=== PATIENT | male | born 1925 | race Caucasian/White ===

== ENCOUNTER 2016-09-27 01:46 | Observation (INO) | payer OTHER, MEDICARE ==
[~2016-09-27] VITALS: Ht 170.2 cm; Wt 85.0 kg
[2016-09-27] VITALS (7 sets, daily range): BP systolic 123–195; BP diastolic 62–90
[~2016-09-27 01:46] MED LIST: ASPIRIN325 M1 PO; AUGMENTIN 875-1 EACH PO; CRESTOR40 MG PO; LIPITOR40 MG PO; LORTAB 5/500 501 TAB PO; MELOXICAM7.5 MG PO; METOPROLOL SUCC50 M1 PO; TESSALON PERLE100 M1 PO; VALSARTAN160 MG PO; WARFARIN PO; WARFARIN SOD5 MG PO; WARFARIN SODIUM1 MG; WARFARIN SODIUM1 MG PO
[2016-09-27] MEDS ORDERED: ASPIRIN 81MG TA81 MG PO (01:54)
[2016-09-27 02:07] LABS: HEMOGLOBIN 14.8 g/dL (14.1-18.0); LYMPH # 1.7 K/mm3 (0.7-4.5); LYMPH % 30.1 % (10-50)
--- NOTE | 2016-09-27 02:41 | Emergency Room Report ---
History of Present Illness Time Seen by MD Mabry Presenting Problem in Triage Pt arrived:Walked Presenting Problem:PT COMPLAINING OF PAIN IN LEFT SIDE OF CHEST AND DOWN LEFT ARM. PT STATES THAT IT STARTED ABOUT 2 HOURS AGO. HE DESCRIBES PAIN A PRESSURE. PT STATES HE IS NOT HAVING ANY PAIN AT THE PRESENT TIME. 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 N Clinical Suspician of Infection? N Mental Status: 1 - Regular (Normal Baseline) Sepsis Risk:Low Sepsis Risk Have you (or family members/close friends) recently traveled outside the [place]? N If Yes, where/when: Have you had exposure to infectious disease within the past month? N TB? Other? Specify: Source patient, RN notes reviewed, family, old records Exam Limitations no limitations Comment acute onset of 2 hrs of chest pain with rad to lt upper ext in this wm who has known card disease Cardiac Chest Pain Chest pain indicative of cardiac Yes Timing/Duration 1-3 hours, gone now Severity/Quality moderate, pressure Location central Chest Pain Radiation arm(s) Activities at Onset light activity Nitro Today/Relief no nitro taken today Aspirin Treatment Today 81 mg x 4, provided by ED Beta sami treatment today no beta saim taken Cardiac risk factors + cardiovascular disease Prior Workup/Intervention pacemaker, stent(s) Timing/Duration this morning Severity moderate ALLERGIES Coded Allergies: No Known Allergies (09/27/16) Home Medications Reported Medications WARFARIN SOD (Warfarin 5MG) 5 MG PO DAILY Valsartan (Valsartan 160MG) 160 MG PO DAILY Metoprolol Succinate Xl (Metoprolol ER 50MG) 50 MG PO DAILY Atorvastatin Calcium (Atorvastatin) 40 MG PO DAILY ASPIRIN (Aspirin) 81 MG PO DAILY History Medical History General CAD? No Angina: Yes [place]: Yes Hypertension? Yes Hyperlipidemia? Yes CHF? No DVT? No PE? No COPD? No Asthma? No Anemia? No GERD? No Gastric ulcers? No GI Bleed? No Hernia? No Thyroid Problems? No Hypothyroidism? No CVA? Yes Seizures? No Diabetes? No Renal Insuffiency? No End Stage Renal Disease? No UTI? No Stones? No BPH? No GB Disease: No Nephritic Syndrome? No Asplenia? No Hepatitis? No Sickle Cell Disease? No Arthritis? No Migraines? No Cataracts? Yes Glaucoma? No MRSA? No HIV? No TB? No Anxiety? No Depression? No Cancer? No More? Yes Additional hx: BORDERLINE DIABETIC Immunization Hx DT/Tetanus UNKNOWN Flu 2012-13FSN Pneumonia Received In Past Surgical Hx Previous Surgery?Y RT KNEE REPLACEMENT APPY CARDIAC STENTS PACEMAKER Family History Family Hx Diabetes No CAD No Hypertension No Hyperlipidemia No Cancer No TB No Social History Smoking Hx Smoker: Former Smoker Tobacco: No Type N/A Are you/the child exposed to second-hand smoke: No Alcohol Alcohol: No Drugs none Review of Systems All Other Systems Reviewed and Negative Constitutional denies fever Eyes denies drainage ENT denies: ear pain, epistaxis, throat pain. Respiratory denies cough, denies shortness of breath, denies wheezing Cardiovascular see HPI, chest pain, denies palpitations, denies syncope Gastrointestinal denies abdominal pain, denies diarrhea, denies vomiting Genitourinary denies: dysuria, frequency, hesitancy, hematuria. Musculoskeletal denies back pain, denies joint pain, denies joint swelling, denies neck pain Skin denies rash Psychiatric/Neurological denies headache, denies seizure Physical Exam Vital Signs Vital Signs Date Time Temp Pulse Resp B/P Pulse O2 O2 Flow FiO2 Ox Delivery Rate 09/27 0246 64 18 156/85 97 09/27 0148 98.2 67 18 195/90 98 - WBC >12,000 or <4,000 or 10% bands? 2 or more SIRS Criteria Met? B/P:156/85 MAP:125 Creatinine >2.0? UA output<0.5ml/kg/hr for 2 hrs? Platelet count >100,000? Lactate >2.0mmol/1? INR >1.2 or PTT > than 60 sec? Evidence of Organ Dysfunction? Provider documented clinical suspician of infection? N Sepsis Criteria Count: 0 Sepsis Risk: Low Sepsis Risk General Appearance no apparent distress Eye Exam - bilateral eye PERRL, bilateral eye EOMI Ear, Nose, Throat normal ENT inspection Neck non-tender Respiratory Status No: respiratory distress. Lung Sounds bilateral: decreased breath sounds. 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 No Results/Orders Laboratory Tests 09/27/16155: Sodium 139, Potassium 3.9, Chloride 106, Carbon Dioxide 28, BUN 27 H, Creatinine 1.3, Estimated Creat Clear 47 L, Estimated GFR (MDRD) 52, Glucose 180 H, Calcium 8.5, Total Bilirubin 0.4, AST 24, ALT 48, Alkaline Phosphatase 71, Creatine Kinase 64, CK-MB (CK-2) Rel Index 2.2, CK and CKMB Interp 1.4, Troponin I 0.05, B-Natriuretic Peptide 264 H, Total Protein 6.7, Albumin 3.4, Globulin 3.3 H, Albumin/Globulin Ratio 1.0 L, PT 17.2 H, INR 1.61 H, WBC 5.7 , RBC 4.84, Hgb 14.8, Hct 44.9, MCV 92.8, RDW 14.8, Plt Count 158, MPV 9.1, Gran % 55.3, Gran # 3.1, Lymphocytes % 30.1, Monocytes % 10.1 H, Eosinophils % 4.0, Basophils % 0.5, Lymphocytes # 1.7, Monocytes # 0.6, Eosinophils # 0.2, Basophils # 0.0, PUBS MCHC 33.0, MCH 30.6 Current Medication Orders Sig/Miguel Start time Last Medication Dose Route Stop Time Status Admin Aspirin 243 MG ONCE ONE 09/27 199 DC 09/27 PO 09/27 200 015 Sodium Chloride 10 ML PRN PRN 09/27 199 AC IV 09/28 154 Aspirin 0 .STK-MED ONE 09/27 158 DC .ROUTE Orders Procedure Date/time Status Decision to admit 09/27 250 Active PROTHROMBIN TIME 09/27 158 Complete 12 LEAD EKG-LATESHA (INITIAL) 09/27 155 Active ELECTROCARDIOGRAM REQUEST 09/27 155 Active CHEST-PORTABLE 09/27 155 Active IV SALINE LOCK 09/27 155 Active CBC WITH AUTO DIFF 09/27 155 Complete CARDIAC ENZYMES 09/27 155 Complete CHEM 12 PROFILE 09/27 155 Complete BRAIN NATRIURETIC PEPTIDE 09/27 155 Complete 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 ST/Twave chgs XRAY/CT/US XRAY/CT/US XRAY chest XR interpretation by reviewed by me Xray Results abnormal (cm) Departure Departure Time of Disposition 0254 Disposition Still a Patient Clinical Impression Primary Impression: Chest pain Qualifiers: Chest pain type: precordial chest pain Qualified Code: R07.2 - Precordial pain Secondary Impressions: Atrial fibrillation Qualifiers: Atrial fibrillation type: chronic Qualified Code: I48.2 - Chronic atrial fibrillation Condition STABLE Additional Instructions discussed with [facility] and no beds available and ok to admit at [facility] ED Critical Care Critical Care No at 0306
--- NOTE | 2016-09-27 02:41 | Emergency Room Report ---
History of Present Illness Time Seen by MD Mabry Presenting Problem in Triage Pt arrived:Walked Presenting Problem:PT COMPLAINING OF PAIN IN LEFT SIDE OF CHEST AND DOWN LEFT ARM. PT STATES THAT IT STARTED ABOUT 2 HOURS AGO. HE DESCRIBES PAIN A PRESSURE. PT STATES HE IS NOT HAVING ANY PAIN AT THE PRESENT TIME. 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 N Clinical Suspician of Infection? N Mental Status: 1 - Regular (Normal Baseline) Sepsis Risk:Low Sepsis Risk Have you (or family members/close friends) recently traveled outside the [place]? N If Yes, where/when: Have you had exposure to infectious disease within the past month? N TB? Other? Specify: Source patient, RN notes reviewed, family, old records Exam Limitations no limitations Comment acute onset of 2 hrs of chest pain with rad to lt upper ext in this wm who has known card disease Cardiac Chest Pain Chest pain indicative of cardiac Yes Timing/Duration 1-3 hours, gone now Severity/Quality moderate, pressure Location central Chest Pain Radiation arm(s) Activities at Onset light activity Nitro Today/Relief no nitro taken today Aspirin Treatment Today 81 mg x 4, provided by ED Beta sami treatment today no beta sami taken Cardiac risk factors + cardiovascular disease Prior Workup/Intervention pacemaker, stent(s) Timing/Duration this morning Severity moderate ALLERGIES Coded Allergies: No Known Allergies (09/27/16) Home Medications Reported Medications WARFARIN SOD (Warfarin 5MG) 5 MG PO DAILY Valsartan (Valsartan 160MG) 160 MG PO DAILY Metoprolol Succinate Xl (Metoprolol ER 50MG) 50 MG PO DAILY Atorvastatin Calcium (Atorvastatin) 40 MG PO DAILY ASPIRIN (Aspirin) 81 MG PO DAILY History Medical History General CAD? No Angina: Yes MD: Yes Hypertension? Yes Hyperlipidemia? Yes CHF? No DVT? No PE? No COPD? No Asthma? No Anemia? No GERD? No Gastric ulcers? No GI Bleed? No Hernia? No Thyroid Problems? No Hypothyroidism? No CVA? Yes Seizures? No Diabetes? No Renal Insuffiency? No End Stage Renal Disease? No UTI? No Stones? No BPH? No GB Disease: No Nephritic Syndrome? No Asplenia? No Hepatitis? No Sickle Cell Disease? No Arthritis? No Migraines? No Cataracts? Yes Glaucoma? No MRSA? No HIV? No TB? No Anxiety? No Depression? No Cancer? No More? Yes Additional hx: BORDERLINE DIABETIC Immunization Hx DT/Tetanus UNKNOWN Flu 2012-13FSN Pneumonia Received In Past Surgical Hx Previous Surgery?Y RT KNEE REPLACEMENT APPY CARDIAC STENTS PACEMAKER Family History Family Hx Diabetes No CAD No Hypertension No Hyperlipidemia No Cancer No TB No Social History Smoking Hx Smoker: Former Smoker Tobacco: No Type N/A Are you/the child exposed to second-hand smoke: No Alcohol Alcohol: No Drugs none Review of Systems All Other Systems Reviewed and Negative Constitutional denies fever Eyes denies drainage ENT denies: ear pain, epistaxis, throat pain. Respiratory denies cough, denies shortness of breath, denies wheezing Cardiovascular see HPI, chest pain, denies palpitations, denies syncope Gastrointestinal denies abdominal pain, denies diarrhea, denies vomiting Genitourinary denies: dysuria, frequency, hesitancy, hematuria. Musculoskeletal denies back pain, denies joint pain, denies joint swelling, denies neck pain Skin denies rash Psychiatric/Neurological denies headache, denies seizure Physical Exam Vital Signs Vital Signs Date Time Temp Pulse Resp B/P Pulse O2 O2 Flow FiO2 Ox Delivery Rate 09/27 0246 64 18 156/85 97 09/27 0148 98.2 67 18 195/90 98 - WBC >12,000 or <4,000 or 10% bands? 2 or more SIRS Criteria Met? B/P:156/85 MAP:125 Creatinine >2.0? UA output<0.5ml/kg/hr for 2 hrs? Platelet count >100,000? Lactate >2.0mmol/1? INR >1.2 or PTT > than 60 sec? Evidence of Organ Dysfunction? Provider documented clinical suspician of infection? N Sepsis Criteria Count: 0 Sepsis Risk: Low Sepsis Risk General Appearance no apparent distress Eye Exam - bilateral eye PERRL, bilateral eye EOMI Ear, Nose, Throat normal ENT inspection Neck non-tender Respiratory Status No: respiratory distress. Lung Sounds bilateral: decreased breath sounds. 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 No Results/Orders Laboratory Tests 09/27/16155: Sodium 139, Potassium 3.9, Chloride 106, Carbon Dioxide 28, BUN 27 H, Creatinine 1.3, Estimated Creat Clear 47 L, Estimated GFR (MDRD) 52, Glucose 180 H, Calcium 8.5, Total Bilirubin 0.4, AST 24, ALT 48, Alkaline Phosphatase 71, Creatine Kinase 64, CK-MB (CK-2) Rel Index 2.2, CK and CKMB Interp 1.4, Troponin I 0.05, B-Natriuretic Peptide 264 H, Total Protein 6.7, Albumin 3.4, Globulin 3.3 H, Albumin/Globulin Ratio 1.0 L, PT 17.2 H, INR 1.61 H, WBC 5.7 , RBC 4.84, Hgb 14.8, Hct 44.9, MCV 92.8, RDW 14.8, Plt Count 158, MPV 9.1, Gran % 55.3, Gran # 3.1, Lymphocytes % 30.1, Monocytes % 10.1 H, Eosinophils % 4.0, Basophils % 0.5, Lymphocytes # 1.7, Monocytes # 0.6, Eosinophils # 0.2, Basophils # 0.0, PUBS MCHC 33.0, MCH 30.6 Current Medication Orders Sig/Miguel Start time Last Medication Dose Route Stop Time Status Admin Aspirin 243 MG ONCE ONE 09/27 199 DC 09/27 PO 09/27 200 015 Sodium Chloride 10 ML PRN PRN 09/27 199 AC IV 09/28 154 Aspirin 0 .STK-MED ONE 09/27 158 DC .ROUTE Orders Procedure Date/time Status Decision to admit 09/27 250 Active PROTHROMBIN TIME 09/27 158 Complete 12 LEAD EKG-LATESHA (INITIAL) 09/27 155 Active ELECTROCARDIOGRAM REQUEST 09/27 155 Active CHEST-PORTABLE 09/27 155 Active IV SALINE LOCK 09/27 155 Active CBC WITH AUTO DIFF 09/27 155 Complete CARDIAC ENZYMES 09/27 155 Complete CHEM 12 PROFILE 09/27 155 Complete BRAIN NATRIURETIC PEPTIDE 09/27 155 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 ST/Twave chgs XRAY/CT/US XRAY/CT/US XRAY chest XR interpretation by reviewed by me Xray Results abnormal (cm) Departure Departure Time of Disposition 0254 Disposition Still a Patient Clinical Impression Primary Impression: Chest pain Qualifiers: Chest pain type: precordial chest pain Qualified Code: R07.2 - Precordial pain Secondary Impressions: Atrial fibrillation Qualifiers: Atrial fibrillation type: chronic Qualified Code: I48.2 - Chronic atrial fibrillation Condition STABLE Additional Instructions discussed with [facility] and no beds available and ok to admit at [facility] ED Critical Care Critical Care No at 0306
[2016-09-27] MEDS ORDERED: GLIPIZIDE 5MG TA5 MG PO (03:25)
[2016-09-27] MEDS ORDERED: HYDROCHLOROTHIA25 M1 PO (03:25)
[2016-09-27] MEDS ORDERED: METOPROLOL 25 M25 MG PO (03:26)
--- NOTE | 2016-09-27 07:26 | PHARMACY CLINIC NOTE ---
Patient Demographics Patient Demographics Admission date: 09/27/16 Date: 09/27/16 Time: 725 Allergies Coded Allergies: No Known Allergies (09/27/16) HEIGHT- FT: 5 IN: 7.00 K.021 VTE General Information Labs: Laboratory Tests 09/27 015 Coagulation PT (9.4 - 11.8 SECONDS) 17.2 H INR (0.9 - 1.1) 1.61 H Hematology Hgb (14.1 - 18.0 g/dL) 14.8 Hct (42.0 - 52.0 %) 44.9 Plt Count (142 - 424 K/mm3) 158 Disclaimer The following section includes nursing documentation that has been pulled in for pharmacy review. Patient's VTE score: 2 Patient's VTE Risk: VERY LOW RISK Clinical trial participant? No VTE prophylaxis NQF [id number] VTE prophylaxis ordered? Yes Type of prophylaxis/treatment: MEDINA (+ WARFARIN) at 0726
--- NOTE | 2016-09-27 08:39 | CONSULT NOTE ---
Standard Demographics Patient Demo Date of Consultation: 09/27/16 Referring Provider: Latrell Ponce MD Reason for Consultation: Chest pain PRIMARY DIAGNOSIS: CHEST PAIN Problem list Problem list: 1. Coronary artery disease A. History of coronary artery stenting approximately [address] Gilbert in [place], [place] B. History of stress test 03/2010 showing EF of 48% without reversible ischemia. 2. Chronic atrial fibrillation, on Coumadin therapy 3. Remote tobacco use discontinued 1984 4. TIA at the time of his coronary stenting with transient loss of speech and LEFT facial droop resolved after one hour per patient. 5. Implantable loop recorder in the LEFT chest. 6. Diabetes Mellitus, on insulin. Patient states he is NOT a diabetic but admits he is on insulin. 7. Carotid artery stenosis A. History of carotid ultrasound, 08/2012, 20-49% ICA stenosis bilaterally. History of present illness: History of present illness: 89-year-old white male with history of coronary disease, diabetes and chronic atrial fibrillation relates onset of LEFT upper chest discomfort radiating into the upper LEFT arm and armpit that woke him from sleep around 11 PM. Patient was concerned that it might be his heart. He denies any diaphoresis, nausea or shortness of breath. He was transported to the emergency room for evaluation and was admitted for observation. Patient states nitro paste did not help his symptoms. He still has some discomfort in the LEFT chest and LEFT upper arm this morning. Cardiac enzymes have been normal 3. Electrocardiogram shows chronic atrial fibrillation with controlled ventricular response. Cardiology consulted for further evaluation and recommendations. Past Medical History: General: Hypertension Yes CVA Yes Seizures No TB No COPD No Asthma No Diabetes Yes Insulin Dependent No Insulin Pump No Angina Yes [place] Yes Hyperlipidemia Yes Urinary No Cancer No Rheumatic H.D. No Ulcers No MRSA No GB Disease No Other ARTHRITIS,UT 08/2008,OSAGE Past Surgical HX: Previous Surgery?Y RT KNEE REPLACEMENT APPY CARDIAC STENTS PACEMAKER Allergies Coded Allergies: No Known Allergies (09/27/16) Home medications: Reported Medications WARFARIN SOD (Warfarin 5MG) 5 MG PO DAILY Atorvastatin Calcium (Atorvastatin) 80 MG PO DAILY HYDROCHLOROTHIAZIDE (Hydrochlorothiazide) 25 MG PO DAILY Glipizide (Glipizide 5MG) 2.5 MG PO BID Metoprolol Tartrate (Metoprolol 25MG) 12.5 MG PO BID Valsartan (Valsartan 160MG) 160 MG PO DAILY ASPIRIN (Aspirin) 81 MG PO DAILY Current Medications: Current Medications Atorvastatin Calcium 40 MG QHS PO Aspirin 81 MG DAILY PO Irbesartan 150 MG DAILY PO Metoprolol Succinate 50 MG DAILY PO Warfarin Sodium 5 MG DAILY PO Diagnostic Test (Pha) 1 EACH W/MEALS&HS FS Insulin Human [rDNA origin] SEE ADMIN CRITERIA FOR LOW INTENSITY SS W/MEALS&HS SC Nitroglycerin 1 IN Q8 TP (DC) Acetaminophen 650 MG Q4HP PRN PO Ondansetron HCl 4 MG Q6HP PRN IV Sodium Chloride 1,000 ML .Q20H IV Nitroglycerin 1 IN ONCE ONE TP (DC) Nitroglycerin 0 .STK-MED ONE .ROUTE (DC) Aspirin 243 MG ONCE ONE PO (DC) Sodium Chloride 10 ML PRN PRN IV Aspirin 0 .STK-MED ONE .ROUTE (DC) Immunization HX DT/Tetanus UNKNOWN Flu 2015-FSN Pneumonia RECEIVED IN PAST TB Test in last year No Family history Family HX Family Hx Insignificant No Diabetes No CAD No Hypertension No Hyperlipidemia No Cancer No TB No Social Hx: Smoking HX Tobacco No Type N/A Are you/the child exposed to second-hand smoke: No Alcohol Alcohol: No Hx of Drug Use Drug Use? No Patien't marital status is Patient's support system is good Review of systems: Constitutional No: no symptoms reported. Respiratory No: no symptoms reported. Cardiovascular see HPI, chest pain Gastrointestinal/Abdominal No no symptoms reported Genitourinary No: no symptoms reported. Musculoskeletal muscle pain. Neurological No: no symptoms reported. Exam: Admission Vital Signs: 1ST Vital Signs Result Date Time Pulse Ox 98 09/27 014 B/P 195/90 09/27 147 Temp 98.2 09/27 147 Pulse 67 09/27 0148 Resp 18 09/27 014 O2 Delivery ROOM AIR 09/27 034 O2 Flow Rate 2 09/27 0351 Last Vital Signs: Vital Signs Result Date Time Pulse Ox 97 09/27 756 B/P 138/70 09/27 756 O2 Delivery ROOM AIR 09/27 756 Temp 98.6 09/27 075 Pulse 59 09/27 075 Resp 18 09/27 075 O2 Flow Rate 2 09/27 0351 Exam General appearance: alert, awake, no acute distress Neck: no carotid bruit, no JVD Cardiovascular: irregularly irregular Respiratory: clear to auscultation, good air movement ABD: soft, no tenderness Extremities: moves all, no peripheral edema Skin: no rash or vesicles noted over the LEFT upper chest. Neuro: alert, intact, oriented, speech clear Laboratory data: Laboratory Tests 09/27/16 0618: POC Glucose 119 H 09/27/16 0535: Creatine Kinase 52, CK-MB (CK-2) Rel Index 2.3, CK and CKMB Interp 1.2, Troponin I 0.04 09/27/16 0156: Sodium 139, Potassium 3.9, Chloride 106, Carbon Dioxide 28, BUN 27 H, Creatinine 1.3, Estimated Creat Clear 47 L, Estimated GFR (MDRD) 52, Glucose 180 H, Calcium 8.5, Total Bilirubin 0.4, AST 24, ALT 48, Alkaline Phosphatase 71, Creatine Kinase 64, CK-MB (CK-2) Rel Index 2.2, CK and CKMB Interp 1.4, Troponin I 0.05, B-Natriuretic Peptide 264 H, Total Protein 6.7, Albumin 3.4, Globulin 3.3 H, Albumin/Globulin Ratio 1.0 L, PT 17.2 H, INR 1.61 H, WBC 5.7 , RBC 4.84, Hgb 14.8, Hct 44.9, MCV 92.8, RDW 14.8, Plt Count 158, MPV 9.1, Gran % 55.3, Gran # 3.1, Lymphocytes % 30.1, Monocytes % 10.1 H, Eosinophils % 4.0, Basophils % 0.5, Lymphocytes # 1.7, Monocytes # 0.6, Eosinophils # 0.2, Basophils # 0.0, PUBS MCHC 33.0, MCH 30.6 Plan: Assessment: 1. Chest pain in a patient with known coronary artery disease and diabetes. Normal troponins 3. No relief with nitroglycerin paste. Echocardiogram has been ordered. Discussed stress testing but patient does not want a stress test. Due to previous CAD with stents, DM on insulin and ROOSEVELT score of 3 with chest pain at rest, will proceed with left heart cath this AM. Will attempt radial approach due to coumadin therapy. 2. Coronary disease with history of stenting 3. Diabetes mellitus, on insulin 4. Hypertension 5. Hyperlipidemia 6. Chronic atrial fibrillation with history of previous stroke without residual effect. On coumadin with INR 1.6. Recommendations: Discussed with Dr. Conte. See above. at 0923
--- NOTE | 2016-09-27 08:55 | HISTORY AND PHYSICAL REPORT ---
Demographics: Admit date: 09/27/16 Chief complaint: chest pain PRIMARY DIAGNOSIS: CHEST PAIN Allergies: Coded Allergies: No Known Allergies (09/27/16) History of present illness: History of present illness: 89-year-old white male with history of coronary disease, diabetes and chronic atrial fibrillation relates onset of LEFT upper chest discomfort radiating into the upper LEFT arm and armpit that woke him from sleep around 11 PM. Patient was concerned that it might be his heart. He denies any diaphoresis, nausea or shortness of breath. He was transported to the emergency room for evaluation and was admitted for observation. Patient states nitro paste did not help his symptoms. He still has some discomfort in the LEFT chest and LEFT upper arm this morning. Cardiac enzymes have been normal 3. Electrocardiogram shows chronic atrial fibrillation with controlled ventricular response. Cardiology consulted for further evaluation and recommendations. Past medical history: Family HX Diabetes No CAD No Hypertension No Hyperlipidemia No Cancer No TB No Immunization HX DT/Tetanus UNKNOWN Flu 2015-FSN Pneumonia Received In Past TB Test in last year No General CAD? No Angina: Yes HI: Yes Hypertension? Yes Hyperlipidemia? Yes CHF? No DVT? No PE? No COPD? No Asthma? No Anemia? No GERD? No Gastric ulcers? No GI Bleed? No Hernia? No Thyroid Problems? No Hypothyroidism? No CVA? Yes Seizures? No Diabetes? Yes Insulin Dependent: No Insulin Pump: No Home FSBS? Yes Renal Insuffiency? No UTI? No Stones? No BPH? No GB Disease: No Nephritic Syndrome? No Asplenia? No Hepatitis? No Sickle Cell Disease? No Arthritis? No Migraines? No Cataracts? Yes Glaucoma? No MRSA? No HIV? No TB? No Anxiety? No Depression? No Cancer? No More? No Past Surgical HX Previous Surgery?Y RT KNEE REPLACEMENT APPY CARDIAC STENTS PACEMAKER Current home meds: Reported Medications WARFARIN SOD (Warfarin 5MG) 5 MG PO DAILY Atorvastatin Calcium (Atorvastatin) 80 MG PO DAILY HYDROCHLOROTHIAZIDE (Hydrochlorothiazide) 25 MG PO DAILY Glipizide (Glipizide 5MG) 2.5 MG PO BID Metoprolol Tartrate (Metoprolol 25MG) 12.5 MG PO BID Valsartan (Valsartan 160MG) 160 MG PO DAILY ASPIRIN (Aspirin) 81 MG PO DAILY Social Hx: Smoking HX Tobacco No Type N/A Are you/the child exposed to second-hand smoke: No Alcohol Alcohol: No Hx of Drug Use Drug Use? No Patien't marital status is Patient's support system is good Review of systems: Constitutional No: fever. Eyes No: blurred vision. Ears, Nose, Mouth, Throat No ear discharge, No epistaxis, No throat pain Respiratory No: cough, wheezing. Cardiovascular see HPI, chest pain, No palpitations, No syncope Gastrointestinal/Abdominal No diarrhea, No vomiting Genitourinary No: dysuria, frequency, hesitancy, hematuria. Musculoskeletal No: back pain, joint pain, joint swelling, neck pain. Skin No: rash. Neurological No: headache, tingling, seizure disorder. Psychiatric No: depressed. Exam: Lab data for last 24 hours: Laboratory Tests 09/27/16 0815: Creatine Kinase 62, CK-MB (CK-2) Rel Index 1.9, CK and CKMB Interp 1.2, Troponin I 0.05 09/27/16 0618: POC Glucose 119 H 09/27/16 0535: Creatine Kinase 52, CK-MB (CK-2) Rel Index 2.3, CK and CKMB Interp 1.2, Troponin I 0.04 09/27/16 0156: Sodium 139, Potassium 3.9, Chloride 106, Carbon Dioxide 28, BUN 27 H, Creatinine 1.3, Estimated Creat Clear 47 L, Estimated GFR (MDRD) 52, Glucose 180 H, Calcium 8.5, Total Bilirubin 0.4, AST 24, ALT 48, Alkaline Phosphatase 71, Creatine Kinase 64, CK-MB (CK-2) Rel Index 2.2, CK and CKMB Interp 1.4, Troponin I 0.05, B-Natriuretic Peptide 264 H, Total Protein 6.7, Albumin 3.4, Globulin 3.3 H, Albumin/Globulin Ratio 1.0 L, PT 17.2 H, INR 1.61 H, WBC 5.7 , RBC 4.84, Hgb 14.8, Hct 44.9, MCV 92.8, RDW 14.8, Plt Count 158, MPV 9.1, Gran % 55.3, Gran # 3.1, Lymphocytes % 30.1, Monocytes % 10.1 H, Eosinophils % 4.0, Basophils % 0.5, Lymphocytes # 1.7, Monocytes # 0.6, Eosinophils # 0.2, Basophils # 0.0, PUBS MCHC 33.0, MCH 30.6 Admission vital signs: 1ST Vital Signs Result Date Time Pulse Ox 98 09/27 147 B/P 195/90 09/27 147 Temp 98.2 09/27 147 Pulse 67 09/27 147 Resp 18 09/27 147 O2 Delivery ROOM AIR 09/27 034 O2 Flow Rate 2 09/27 0351 Exam General appearance: alert, active Eyes: anicteric, PERRLA ENT: dry mucous membranes Neck: no carotid bruit, no JVD Cardiovascular: irregularly irregular, murmur Respiratory: good air movement, no respiratory distress ABD: soft, no tenderness, no guarding Genitourinary: no hematuria Extremities: moves all Musculoskeletal: equal muscle strength Skin: dry 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 Chest pain 2. Atrial fibrillation 3. Renal insufficiency 4. HTN (hypertension) 5. Pacemaker Plan: will check echo and stress test at 0855
--- NOTE | 2016-09-27 13:20 | RADIOLOGY REPORT PS360 ---
CARDIAC CATHETERIZATION DATE OF CATHETERIZATION:09/27/2016 12:00 PM PROCEDURES: 1. Left heart catheterization 2. Left ventriculogram 3. Selective coronary angiogram INDICATION FOR TEST: 1. Known coronary artery disease 2. Possible unstable angina 3. Atrial fibrillation 4. Known ischemic heart disease Informed consent was obtained prior to the procedure. COMPLICATIONS: None ESTIMATED BLOOD LOSS: Less than 10 ml. TECHNIQUE: One percent lidocaine used to anesthetize the right anterior aspect of the wrist. The right radial artery was accessed via the Seldinger technique. A 5 Chinese sheath was placed in the right radial artery. 2.5 mg of verapamil and 800 mcg of nitroglycerin were given through the arterial sheath. The [place] catheter was also used to perform left heart catheterization and left ventriculography. At the end of the procedure the patient was transferred to the post-op holding area in stable condition for arterial sheath removal. ANGIOGRAPHIC RESULTS: 1. The left main artery normal 2. The left anterior descending artery proximally has mild less than 10% stenoses while there is a focal 50% stenosis immediately after a large second diagonal artery. Immediately distal to this concentric 50% stenosis is a stent which is widely patent with mild concentric in-stent restenosis. The first and second diagonal artery are widely patent 3. The circumflex artery is nondominant yet still a large vessel and has a proximal eccentric 30% stenosis. The first obtuse marginal artery is a large caliber vessel and has proximal eccentric long 40% stenoses while the second obtuse marginal artery has a proximal eccentric 30-40% and mid vessel 30-40% stenosis 4. The right coronary artery is a dominant vessel and has stents in the ostial proximal mid and distal segment. The stent actually sticks out into the right coronary cusp. The entire ostial proximal mid and distal segment is widely patent with mild in-stent restenosis. The posterior descending artery has proximal eccentric 30 and a mid vessel eccentric 40-50% stenosis at a 1.5 mm diameter vessel 5. The LAMAS ventriculogram reveals normal 65% 6. The left ventricular end-diastolic pressure mildly elevated at 20 mmHg IMPRESSION: 1. Adequate coronary artery revascularization with a mid LAD stent being widely patent with mild concentric in-stent restenosis and widely patent stent in the ostial proximal mid distal right coronary artery with mild in-stent restenosis 2. Normal ejection fraction 3. Mildly elevated LVEDP PLAN: 1. Medical management 2. INR therapy between 2 and 3 requiring reimplantation of Coumadin
--- NOTE | 2016-09-27 15:47 | RADIOLOGY REPORT PS360 ---
PROCEDURE: 2-D M-mode and color Doppler study INDICATIONS FOR THE TEST: Chest pain X COPD Heart Murmur Tobacco Smoking Palpitations Fatigue Syncope Edema Hypertension Diabetes MellitusX Rheumatic Fever SOB MARINELLI Obesity Hyperlipidemia Family History HD Additional History CAD,CHRONIC AF TDS PATIENT INFORMATION HEIGHT: 67 WEIGHT:190 GENDER: Male B/P:195/90 2-D/M-MODE INTERPRETATION: 2-D MEASUREMENTS OBSERVED VALUES IN CMS Right Ventricular Dimension (RVDd) 2.5 Interventricular Septum (Thickness)(IVsd) 1.0 Left Ventricular Internal Dimensions(LVIDd) 5.1 Left Ventricular Posterior Wall (Thickness)(LVPWd) 1.0 Aortic Root 3.1 Aortic Cusp Separation 1.5 Left Atrial Dimensions (LAD) 3.9 2D 1. The left atrium is qualitatively moderately enlarged, the left ventricle is normal size there is preserved left ventricular systolic function, visually estimated ejection fraction 50% with no obvious regional wall motion abnormality, endocardial surfaces are poorly visualized. 2. The right atrium is moderately enlarged, the right ventricle is mildly dilated with normal contractility. 3. The aortic valve is thickened and calcified the leaflet continue to display mobility. 4. The mitral valve has mitral calcification there is no mitral stenosis. 5. The tricuspid valve restructure normal. 6. The pulmonic valve is not well visualized. 7. There is trivial pericardial effusion noted. DOPPLER INTERROGATION: Doppler interrogation of the aortic mitral and tricuspid valve reveals presence of mild mitral and tricuspid regurgitation, tricuspid regurgitant jet velocity insufficient for calculation of the right ventricular systolic pressure. CONCLUSION: 1. Qualitatively moderate biatrial enlargement, normal left ventricular size preserved left ventricular systolic function, visually estimated ejection fraction of 50% with no obvious regional wall motion abnormality. 2. Mildly enlarged right ventricle with normal contractility. 3. Aortic sclerosis without aortic stenosis aortic insufficiency. 4. Mild mitral and tricuspid regurgitation. 5. Trivial pericardial effusion noted.
--- NOTE | 2016-09-27 15:54 | DISCHARGE SUMMARY STANDARD ---
Demographics Admit date: 09/27/16 Discharge date: 09/27/16 History of present illness History of present illness 89-year-old white male with history of coronary disease, diabetes and chronic atrial fibrillation relates onset of LEFT upper chest discomfort radiating into the upper LEFT arm and armpit that woke him from sleep around 11 PM. Patient was concerned that it might be his heart. He denies any diaphoresis, nausea or shortness of breath. He was transported to the emergency room for evaluation and was admitted for observation. Patient states nitro paste did not help his symptoms. He still has some discomfort in the LEFT chest and LEFT upper arm this morning. Cardiac enzymes have been normal 3. Electrocardiogram shows chronic atrial fibrillation with controlled ventricular response. Cardiology consulted for further evaluation and recommendations. Hospital Course Hospital Course: pt did well through the night and had stable card enz and because of his risks factors and presentation underwent card cath - see report- no stenting required- pt was stable and will be d/c to see his pcp and card as op Discharge diagnoses Problem List 1. Chest pain 2. Atrial fibrillation 3. Renal insufficiency 4. HTN (hypertension) 5. Pacemaker Medications Medications: Discharge meds are as noted. Follow up Follow up in office in: 2 WEEKS with: Collins Souza MD Comment: will see pcp at pr if not he can see me and should f/u once at least with dr souza at [phone]
--- NOTE | 2016-10-11 10:21 | RADIOLOGY REPORT PS360 ---
CHEST-PORTABLE HISTORY: CHEST PAIN ORDERING PHYSICIAN: Linwood Ponce MD PATIENT AGE: 89 years COMPARISON: 02/24/2016 FINDINGS: The cardiomediastinal silhouette and pulmonary vascularity are within normal limits. Fibrotic changes are present in the left midlung. No lobar consolidation or collapse. No acute bony abnormalities. IMPRESSION: No change with no acute finding
== END 2016-09-27 16:45 | disposition home or self-care (01) ==
LOC: ER 01:46 → 2ND 02:55 → ER 02:55 → 2ND 03:42
PROVIDERS: Emergency Medicine; Internal Medicine
PROC: B2111ZZ Fluoroscopy of Multiple Coronary Arteries using Low Osmolar Contrast (ICD-10-PCS; 2016-09-27)
PROC: B2151ZZ Fluoroscopy of Left Heart using Low Osmolar Contrast (ICD-10-PCS; 2016-09-27)
PROC: 4A023N7 Measurement of Cardiac Sampling and Pressure, Left Heart, Percutaneous Approach (ICD-10-PCS; principal; 2016-09-27 11:00)
DX: I25.110 Atherosclerotic heart disease of native coronary artery with unstable angina pectoris (principal); I25.9 Chronic ischemic heart disease, unspecified; I48.2 Chronic atrial fibrillation; Z95.818 Presence of other cardiac implants and grafts; I10 Essential (primary) hypertension; Z95.5 Presence of coronary angioplasty implant and graft; E11.9 Type 2 diabetes mellitus without complications; Z79.01 Long term (current) use of anticoagulants; Z86.73 Personal history of transient ischemic attack (TIA), and cerebral infarction without residual deficits
CPT/HCPCS: C1725; C1769; G0378; J1644; Q9967